=== PATIENT | male | born 1975 | race African-American/Black ===

== ENCOUNTER 2017-07-21 10:51 | Emergency (ER) | payer OTHER, SELFPAY ==
--- NOTE | 2017-07-21 12:26 | EKG ---
Test Date: 2017-07-21 Test Time: 11:08:07 Sewing Line Baler: ANITA MEASUREMENT RESULTS: Intervals: Rate: 65 AL: 182 QRSD: 78 QT: 414 QTc: 430 Amigo: P: 23 AL: 182 QRS: 80 T: 68 INTERPRETIVE STATEMENTS: Sinus rhythm with premature atrial complexes Minimal voltage criteria for LVH, may be normal variant Borderline ECG No previous ECG available for comparison Electronically Signed On 07-21-17 12:25:29 CDT by Alexander Sinclair
--- NOTE | 2017-07-21 14:55 | RAD REPORT ---
EXAM DESCRIPTION: RAD - Chest Pa And Lat (2 Views) - 07/21/2017 2:34 pm CLINICAL HISTORY: Cough, chest pain, smoking history COMPARISON: None. TECHNIQUE: PA and lateral views of the chest were obtained. FINDINGS: The lungs are clear. Heart size is normal and central vasculature is within normal limit s. No pleural effusion or pneumothorax seen. No acute bony finding noted. No aortic abnormality. IMPRESSION: No acute cardiopulmonary process.
--- NOTE | 2017-07-21 14:57 | EDPHYS ---
Physician Documentation [facility] Name: Wayne Morel Jr Age: 41 yrs Sex: Male : 1975 Arrival Date: 07/21/2017 Time: 10:55 Bed 25 Private MD: out of town, doctor ED Physician Geovani Carrasco HPI: 07/21 13:18 This 41 yrs old Black Male presents to ER via Ambulatory with complaints of Cough, rn Chest Pain. 13:18 The patient or guardian reports cough, that is intermittent, described as moderate, rn with no sputum. Onset: The symptoms/episode began/occurred 2 day(s) ago. Severity of symptoms: At their worst the symptoms were moderate, in the emergency department the symptoms have improved. Associated signs and symptoms: Pertinent positives: chest pain. The patient has not experienced similar symptoms in the past. The patient has not recently seen a physician. Reports cough and chest pain, central, when coughing, reports congestion, also reports working in a house with leak and mold recently, + smoker. . Historical: - Allergies: 11:02 No Known Allergies; tw2 - PSHx: 11:02 None; tw2 - Immunization history:: Adult Immunizations up to date. - Social history:: Smoking status: Patient uses tobacco products, smokes one-half pack cigarettes per day, Patient uses alcohol, claims drinking about a 6 pack/day. street drugs, marijuana, "every now and then". - Family history:: not pertinent. - Hospitalizations: : No recent hospitalization is reported. ROS: 13:18 Constitutional: Negative for fever, chills, and weight loss, Eyes: Negative for injury, rn pain, redness, and discharge, Neck: Negative for injury, pain, and swelling, Cardiovascular: Negative for chest pain, palpitations, and edema, Respiratory: + cough and pleuritic chest pain Abdomen/GI: Negative for abdominal pain, nausea, vomiting, diarrhea, and constipation, MS/Extremity: Negative for injury and deformity, Skin: Negative for injury, rash, and discoloration, Neuro: Negative for headache, numbness, tingling, and seizure. Exam: 13:18 Constitutional: This is a well developed, well nourished patient who is in no acute rn distress. Sleeping comfortably. Head/Face: Normocephalic, atraumatic. Eyes: Pupils equal round and reactive to light, extra-ocular motions intact. Lids and lashes normal. Conjunctiva and sclera are non-icteric and not injected. Cornea within normal limits. Periorbital areas with no swelling, redness, or edema. Neck: Trachea midline, no thyromegaly or masses palpated, and no cervical lymphadenopathy. Supple, full range of motion without nuchal rigidity, or vertebral point tenderness. No Meningismus. Cardiovascular: Regular rate and rhythm with a normal S1 and S2. No gallops, murmurs, or rubs. Normal PMI, no JVD. No pulse deficits. Respiratory: Lungs have equal breath sounds bilaterally, clear to auscultation and percussion. No rales, rhonchi or wheezes noted. No increased work of breathing, no retractions or nasal flaring. Abdomen/GI: Soft, non-tender, with normal bowel sounds. No distension or tympany. No guarding or rebound. No evidence of tenderness throughout. Skin: Warm, dry with normal turgor. Normal color with no rashes, no lesions, and no evidence of cellulitis. MS/ Extremity: Pulses equal, no cyanosis. Neurovascular intact. Full, normal range of motion. Equal circumference. Neuro: Awake and alert, GCS 15, oriented to person, place, time, and situation. Cranial nerves II-XII grossly intact. Motor strength 5/5 in all extremities. Sensory grossly intact. Cerebellar exam normal. Normal gait. Vital Signs: 11:02 BP 133 / 90; Pulse 77; Resp 18; Temp 98.2(O); Pulse Ox 98% on R/A; Weight 68.95 kg (R); tw2 Height 6 ft. 1 in. (185.42 cm); Pain 7/10; 13:30 BP 120 / 68; Pulse 53; Resp 18; Pulse Ox 97% on R/A; tm3 14:40 BP 112 / 62; Pulse 68; Resp 18; Pulse Ox 98% on R/A; tl3 11:02 Body Mass Index 20.05 (68.95 kg, 185.42 cm) tw2 MDM: 13:09 Patient medically screened. rn 14:56 Differential Diagnosis: Bronchitis Upper Respiratory Infection Viral Syndrome rn Pneumonia. Data reviewed: vital signs, nurses notes, radiologic studies, plain films, and as a result, I will discharge patient. Counseling: I had a detailed discussion with the patient and/or guardian regarding: the historical points, exam findings, and any diagnostic results supporting the discharge/admit diagnosis, radiology results, the need for outpatient follow up, to return to the emergency department if symptoms worsen or persist or if there are any questions or concerns that arise at home. Special discussion: I discussed with the patient/guardian in detail that at this point there is no indication for admission to the hospital. It is understood, however, that if the symptoms persist or worsen the patient needs to return immediately for re-evaluation. 07/21 12:48 Order name: XRAY Chest Pa And Lat (2 Views); Complete Time: 14:56 rn 07/21 11:50 Order name: EKG Electrocardiogram; Complete Time: 14:58 EDMS Administered Medications: No medications were administered Disposition: 07/21/17 14:57 Discharged to Home. Impression: Cough, Pleurisy. - Condition is Stable. - Discharge Instructions: Pleurisy, Cough, Adult. - Prescriptions for Zithromax Z- Sheldon 250 mg Oral Tablet - take 1 tablet by ORAL route as directed for 5 days Day 1 - take two (2) tablets one time. Day 2, 3, 4 , 5 take one (1) tablet once daily.; 6 tablet. Medrol (Sheldon) 4 mg Oral Tablets, Dose Pack - take 1 tablet by ORAL route as directed - follow package instructions; 1 packet. - Medication Reconciliation Form, Thank You Letter, Antibiotic Education, Prescription Opioid Use, Work release form form. - Follow up: Private Physician; When: As needed; Reason: Recheck today's complaints, Re-evaluation by your physician. - Problem is new. - Symptoms have improved. Signatures: Dispatcher [employer] EDMS Geovani Carrasco MD MD rn Wise, Tara RN RN tw2 Cleopatra Baker RN RN tl3 Corrections: (The following items were deleted from the chart) 15:20 14:57 07/21/2017 14:57 Discharged to Home. Impression: Cough; Pleurisy. Condition is tl3 Stable. Forms are Medication Reconciliation Form, Thank You Letter, Antibiotic Education, Prescription Opioid Use. Follow up: Private Physician; When: As needed; Reason: Recheck today's complaints, Re-evaluation by your physician. Problem is new. Symptoms have improved. rn
--- NOTE | 2017-07-21 14:57 | ER ---
Nurse's Notes [facility] Name: Wayne Morel Jr Age: 41 yrs Sex: Male : 1975 Arrival Date: 07/21/2017 Time: 10:55 Bed 25 Private MD: out of town, doctor Diagnosis: Cough;Pleurisy Presentation: 07/21 11:01 Presenting complaint: Patient states: i have a pain in my chest that wont go away and i tw2 have been coughing, chest pain started a day or so ago. Transition of care: patient was not received from another setting of care. Onset of symptoms was July 21, 2017. Risk Assessment: Do you want to hurt yourself or someone else? Patient reports no desire to harm self or others. Initial Sepsis Screen: Does the patient meet any 2 criteria? No. Patient's initial sepsis screen is negative. Does the patient have a suspected source of infection? No. Patient's initial sepsis screen is negative. Care prior to arrival: None. 11:01 Method Of Arrival: Ambulatory tw2 11:01 Acuity: LISSET 3 tw2 Historical: - Allergies: 11:02 No Known Allergies; tw2 - PSHx: 11:02 None; tw2 - Immunization history:: Adult Immunizations up to date. - Social history:: Smoking status: Patient uses tobacco products, smokes one-half pack cigarettes per day, Patient uses alcohol, claims drinking about a 6 pack/day. street drugs, marijuana, "every now and then". - Family history:: not pertinent. - Hospitalizations: : No recent hospitalization is reported. Screenin:20 Abuse screen: Denies threats or abuse. Nutritional screening: No deficits noted. tl3 Tuberculosis screening: No symptoms or risk factors identified. Fall Risk None identified. Assessment: 13:10 General: Appears uncomfortable, slender, well groomed, well developed, well nourished, tl3 Behavior is calm, cooperative, appropriate for age. Pain: Complains of pain in chest Pain does not radiate. Pain began 1 day ago. pain with cough. Neuro: Level of Consciousness is awake, alert, obeys commands, Oriented to person, place, time, situation, Appropriate for age. Cardiovascular: No deficits noted. Heart tones S1 S2 present Patient's skin is warm and dry. Respiratory: Reports cough that is dry, persistent Airway is patent Trachea midline Respiratory effort is even, unlabored, Respiratory pattern is regular, symmetrical, Breath sounds are clear. GI: No signs and/or symptoms were reported involving the gastrointestinal system. : No signs and/or symptoms were reported regarding the genitourinary system. EENT: No signs and/or symptoms were reported regarding the EENT system. 14:36 Reassessment: Patient appears in no apparent distress at this time. No changes from tl3 previously documented assessment. Patient and/or family updated on plan of care and expected duration. Pain level reassessed. Patient is alert, oriented x 3, equal unlabored respirations, skin warm/dry/pink. at bedside, pt in no distress, sleeping quietly. Vital Signs: 11:02 BP 133 / 90; Pulse 77; Resp 18; Temp 98.2(O); Pulse Ox 98% on R/A; Weight 68.95 kg (R); tw2 Height 6 ft. 1 in. (185.42 cm); Pain 7/10; 13:30 BP 120 / 68; Pulse 53; Resp 18; Pulse Ox 97% on R/A; tm3 14:40 BP 112 / 62; Pulse 68; Resp 18; Pulse Ox 98% on R/A; tl3 11:02 Body Mass Index 20.05 (68.95 kg, 185.42 cm) tw2 ED Course: 10:55 Patient arrived in ED. mr 10:55 out of town, doctor is Private Physician. mr 11:01 Triage completed. tw2 11:01 Arm band placed on. tw2 11:13 EKG done, by windows deployment technician. reviewed by Geovani Carrasco MD. tc 13:02 Cleopatra Baker, RN is Primary Nurse. tl3 13:09 Geovani Carrasco MD is Attending Physician. rn 13:25 hosiery pairer on. Pulse ox on. NIBP on. tl3 14:33 X-ray(s) taken. tm3 14:34 X-ray completed. Patient tolerated procedure well. Patient moved back from radiology. jb2 14:34 XRAY Chest Pa And Lat (2 Views) In Process Unspecified. EDMS 15:19 No provider procedures requiring assistance completed. Patient did not have IV access tl3 during this emergency room visit. Patient maintains SpO2 saturation greater than 95% on room air. 15:20 Patient has correct armband on for positive identification. tl3 Administered Medications: No medications were administered Outcome: 14:57 Discharge ordered by . rn 15:19 Discharged to home ambulatory. tl3 15:19 Condition: stable 15:19 Discharge instructions given to patient, family, Instructed on discharge instructions, follow up and referral plans. medication usage, Demonstrated understanding of instructions, follow-up care, medications, Prescriptions given X 2. 15:20 Patient left the ED. tl3 Signatures: Dispatcher [employer] EDMS Deshawn Aiken tm3 Jada Dominguez mr Prabha, José jb2 Geovani Carrasco MD MD rn Callis, Tiffany, preparation plant repairer EKG Ttc Cherry Matos RN RN tw2 Cleopatra Baker, RN RN tl3 Corrections: (The following items were deleted from the chart) 14:10 14:09 Warm blanket given. tm3 tm3
== END 2017-07-21 15:20 | disposition home or self-care (01) ==
LOC: ER 10:51
DX: R09.1 Pleurisy (principal); F17.210 Nicotine dependence, cigarettes, uncomplicated
CPT/HCPCS: 71046; 93005; 99285